=== PATIENT | female | born 1970 | race Caucasian/White ===

== ENCOUNTER 2016-04-22 11:11 | Emergency (ER) | payer SELFPAY ==
[2016-04-22] MEDS ORDERED: PREDNISONE 20 MG TAB PO ONE (12:29)
[2016-04-22] MEDS ORDERED: AMOXICILLIN 500 MG CAP PO ONE (12:29)
--- NOTE | 2016-04-22 12:29 | EDPRACDOC ---
- General Information Stated Complaint: CONGESTION & COUGH Time Seen by Provider: 04/22/16 12:16 Home Medications: Home Medications Esomeprazole Magnesium [Nexium 24Hr] 20 mg PO DAILY PRN 02/10/16 Albuterol Sulfate [Proventil Hfa] 1 - 2 puff INH Q4H PRN #1 each 04/22/16 Amoxicillin Trihydrate [Amoxicillin] 500 mg PO TID #30 tab 04/22/16 Prednisone [Deltasone, Orasone] 2 tabs PO DAILY #20 tab 04/22/16 Promethazine Dextromethorphan [Phenergan DM] 5 ml PO Q4H PRN #120 ml 04/22/16 Allergies/Adverse Reactions: Allergies Allergy/AdvReac Type Severity Reaction Status Date / Time codeine phosphate Allergy Hives* Verified 03/03/16 07:08 [From Tylenol-Codeine #3] - History of Present Illness Symptoms Started: weeks HPI: PT PRESENTS TODAY WITH COUGH/CONGESTION X WEEKS. RECENTLY BEGAN TO FEEL MORE FATIGUED WITH SUBJECTIVE FEVER. PT HEAVY SMOKER WITH COPD. DENIES CP, ABD PAIN , N/V/D. NO APPARENT DISTRESS. Symptoms: Reports: Cough, Fever, Nasal Symptoms Recent Medications: Reports: None Relevant History Of: Reports: COPD Shortness of Breath: Mild Cough Frequency: Persistent Cough Description: Reports: Congested Rhinorrhea: Reports: None Ear Symptoms: Reports: None Associated Signs and Symptoms: Reports: Cough, Fever, Nasal Symptoms, Other ( FATIGUE) ED Past Medical History - History Reviewed Yes Nurses notes reviewed and agree except as marked - Patient Medical History Respiratory History: Reports: COPD GI/ History: Reports: Gastroesophageal Reflux Psychological History: Denies: Depression Additional Past Medical History: Chronic Back Pain Surgical History: Reports: Cholecystectomy, Other (TUBAL LIGATION) - Social Medical History Smoking Status: Heavy tobacco smoker (5 or more cigarettes/day or daily pipe/ cigar) EDM Review of Systems - Review of Systems ROS Negative Except as Marked: Yes All systems reviewed and were negative except as marked Constitutional: Fever, Fatigue Eyes: No Symptoms Reported Ears: No Symptoms Reported Throat: No Symptoms Reported Nose: Congestion Respiratory: Cough, Shortness of Breath, Wheezing Cardiovascular: No Symptoms Reported Gastrointestinal: No Symptoms Reported Neurological: No Symptoms Reported Musculoskeletal: No Symptoms Reported Integumentary: No Symptoms Reported - Physical Exam Constitutional: Alert (Awake), No apparent distress Oriented to: Time, Person, Place Last recorded Vital Signs: Oxygen Pulse Oxygen Saturation O2 Device Oxygen Flow Rate Fraction of Inspired Oxygen ( FIO2) - HEENT Head: Normal Eye Exam: Normal Oropharynx: Normal Tympanic Membrane: Normal ENT EAC: Normal Nose: Congestion Neck: Normal, Denies Pain, Midline - Respiratory/Cardiovascular Respiratory: Rhonchi (MILD, BILATERAL LOWER LOBES), Wheezes (BILATERAL UPPER LOBES) Cardiovascular: Normal - GI Palpation: Normal Tenderness: Non tender - Musculoskeletal Back: Normal Extremities: Normal - Integumentary Skin: Normal Lymphatics: Normal - Neurologic Cerebellar: Normal Mood Description: Normal Thought: Coherent Perception: Normal Decision Time to Discharge: 12:26 - Departure Disposition: Home Condition: Stable Final Diagnosis: Bronchopneumonia Instructions: Community Acquired Pneumonia (ED) Education/Counseling Given To: Patient Education/Counseling Given Regarding: Diagnosis, Treatment, Follow Up Referrals: None,No Provider [Primary Care Provider] - One Week Prescriptions: New Albuterol Sulfate [Proventil Hfa] 1 - 2 puff INH Q4H PRN #1 each PRN Reason: Shortness Of Breath Amoxicillin Trihydrate [Amoxicillin] 500 mg PO TID #30 tab Prednisone [Deltasone, Orasone] 2 tabs PO DAILY #20 tab Promethazine Dextromethorphan [Phenergan DM] 5 ml PO Q4H PRN #120 ml PRN Reason: Cough No Action Esomeprazole Magnesium [Nexium 24Hr] 20 mg PO DAILY PRN PRN Reason: Acid Reflux Additional Instructions: STOP SMOKING!!! REST AND PLENTY OF FLUIDS. FOLLOW UP WITH PCP IN 2-3 DAYS IF NEEDED OR RETURN TO ER FOR ANY WORSE/CONCERNING SYMPTOMS.
[2016-04-22 12:30] VITALS: BP 162/65; PULSE 76; TEMP 98; BMI 29.1
== END 2016-04-22 12:36 | disposition home or self-care (01) ==
LOC: ED 11:11 → EDMC 12:36
DX: J18.0 Bronchopneumonia, unspecified organism (principal)
CPT/HCPCS: 99282; J3490

== ENCOUNTER 2016-04-27 16:17 | Inpatient (IN) | payer SELFPAY ==
[2016-04-27 16:30] VITALS: BMI 29.0
[2016-04-27] MEDS ORDERED: Albuterol/Ipratropium Neb 3 ML NEB NEB ONE (18:20)
[2016-04-27] MEDS ORDERED: METHYLPREDNISOLONE 125 MG/2 ML VIAL IV ONE (18:20)
[2016-04-27] MEDS ORDERED: NS 1,000 ML IV ONE (18:21)
[2016-04-27] MEDS ORDERED: HYDROmorphone 1 MG INJECTION IV ONE (18:21)
[2016-04-27] MEDS ORDERED: ONDANSETRON HCL 4 MG/2 ML VIAL IV ONE (18:21)
--- NOTE | 2016-04-27 18:28 | DIRPT ---
CLINICAL DATA: Cough, congestion and shortness of breath for 1 week. EXAM: CHEST 2 VIEW COMPARISON: 02/10/2016 FINDINGS: The cardiomediastinal contours are normal. The lungs are clear. Pulmonary vasculature is normal. No consolidation, pleural effusion, or pneumothorax. No acute osseous abnormalities are seen. IMPRESSION: No acute pulmonary process. Electronically Signed By: Ashley Coughlin M.D. On: 04/27/2016 18:25
[2016-04-27 18:38] LABS: ABG Draw Site Right Radial; ALLEN'S TEST PASS; BEb 1.1 (+/- 2); TCO2 26.2 MMOL/L (23-27)
--- NOTE | 2016-04-27 18:53 | EDPRACDOC ---
- General Information Information Source: Patient - History of Present Illness Onset: WEEKS HPI: PT PRESENTS TODAY WITH INCREASING COUGH/SHOB, FATIGUE AND FEVER. PT HAS BEEN COUGHING FOR WEEKS. I SAW PT YESTERDAY AND GAVE ANTIBIOTICS, STEROIDS AND INHALER. PT COULD NOT AFFORD INHALER, BUT DID START THE OTHERS. PT APPEARS ILL, BUT NON-TOXIC. Shortness of Breath: Moderate Relevant History: Reports: COPD Cough: Reports: Productive, Green Rhinorrhea: Reports: None Ear Symptoms: Reports: Earache SOB Worsens with: Reports: Exertion, Coughing SOB Improves with: Reports: Rest Recently treated infections:: Reports: Pneumonia Associated Signs and symptoms: Reports: Cough, Earache, Fever, Nasal Symptoms, Myalgia <Suni Mayen - Last Filed: 04/27/16 19:22> <Benji Cleary - Last Filed: 04/27/16 20:17> - General Information Chief Complaint: Dyspnea/Resp distress Stated Complaint: SHOB/COUGH/ELODIA Time Seen by Provider: 04/27/16 18:08 Home Medications: Home Medications Esomeprazole Magnesium [Nexium 24Hr] 20 mg PO DAILY PRN 02/10/16 Albuterol Sulfate [Proventil Hfa] 1 - 2 puff INH Q4H PRN #1 each 04/22/16 Amoxicillin Trihydrate [Amoxicillin] 500 mg PO TID #30 tab 04/22/16 Prednisone [Deltasone, Orasone] 2 tabs PO DAILY #20 tab 04/22/16 Promethazine Dextromethorphan [Phenergan DM] 5 ml PO Q4H PRN #120 ml 04/22/16 Allergies/Adverse Reactions: Allergies Allergy/AdvReac Type Severity Reaction Status Date / Time codeine phosphate Allergy Hives* Verified 04/27/16 16:30 [From Tylenol-Codeine #3] ED Past Medical History - History Reviewed Yes Nurses notes reviewed and agree except as marked - Patient Medical History Respiratory History: Reports: Asthma, COPD GI/ History: Reports: Gastroesophageal Reflux Psychological History: Denies: Depression Additional Past Medical History: Chronic Back Pain Surgical History: Reports: Cholecystectomy, Other (TUBAL LIGATION). Denies: Hysterectomy - Social Medical History Smoking Status: Heavy tobacco smoker (5 or more cigarettes/day or daily pipe/ cigar) <Suni Mayen - Last Filed: 04/27/16 19:22> EDM Review of Systems - Review of Systems ROS Negative Except as Marked: Yes All systems reviewed and were negative except as marked Constitutional: Fever, Fatigue, Weakness Eyes: No Symptoms Reported Ears: Pain Throat: No Symptoms Reported Nose: Congestion Respiratory: Cough, Shortness of Breath Cardiovascular: No Symptoms Reported Gastrointestinal: Nausea Genitourinary: No Symptoms Reported Neurological: No Symptoms Reported Musculoskeletal: Chestwall Integumentary: No Symptoms Reported <Suni Mayen Fareed - Last Filed: 04/27/16 19:22> - Physical Exam Constitutional: Alert, Distress Oriented to: Time, Person, Place Last recorded Vital Signs: Last Vital Signs Temp 99.7 F 04/27/16 16:28 Pulse 100 04/27/16 18:45 Resp 22 04/27/16 18:45 BP 122/65 04/27/16 18:45 Pulse Ox 94 04/27/16 18:45 Oxygen Pulse Oxygen Saturation 94 O2 Device Nasal Cannula Oxygen Flow Rate 2 Fraction of Inspired Oxygen ( FIO2) - HEENT Head: Normal Eye Exam: Normal Oropharynx: Normal Tympanic Membrane: Normal ENT EAC: Normal Nose: Congestion Neck: Normal, Denies Pain, Midline - Respiratory/Cardiovascular Respiratory: Diminished, Rhonchi, Wheezes Cardiovascular: Tachycardia - GI Palpation: Normal Tenderness: Non tender - Musculoskeletal Back: Normal Extremities: Normal - Integumentary Skin: Warm Lymphatics: Normal - Neurologic Cerebellar: Normal Mood Description: Normal Thought: Coherent Perception: Normal <Suni Mayen - Last Filed: 04/27/16 19:22> - Physical Exam Last recorded Vital Signs: Last Vital Signs Temp 99.7 F 04/27/16 16:28 Pulse 101 04/27/16 19:32 Resp 18 04/27/16 19:32 BP 127/67 04/27/16 19:32 Pulse Ox 96 04/27/16 19:32 Oxygen Pulse Oxygen Saturation 96 O2 Device Room Air Oxygen Flow Rate 2 Fraction of Inspired Oxygen ( FIO2) <Benji Cleary - Last Filed: 04/27/16 20:17> ED SOB MDM - Results Result Diagrams: 04/27/16 15:35 04/27/16 15:35 Results: Puncture Site Right radial 04/27/16 18:32 pH 7.440 pH UNITS (7.35-7.45) 04/27/16 18:32 pCO2 37.0 mmHg (35-45) 04/27/16 18:32 pO2 58.0 mmHg (80-100) L 04/27/16 18:32 HCO3 25.1 MMOL/L (22-26) 04/27/16 18:32 Total CO2 26.2 MMOL/L (23-27) 04/27/16 18:32 Base Excess 1.1 (+/- 2) 04/27/16 18:32 FiO2 % .21 04/27/16 18:32 Specimen Drawn By Sy 04/27/16 18:32 Lab Results 04/27/16 18:32 Puncture Site Right radial pH 7.440 pCO2 37.0 pO2 58.0 L HCO3 25.1 Total CO2 26.2 Base Excess 1.1 FiO2 % .21 Specimen Drawn By Sy <FaheemuSni Fareed - Last Filed: 04/27/16 19:22> - Differential Diagnosis Differential Diagnosis: Asthma, Pnuemonia, URI - Re-evaluation Re-evaluation 1 Re-evaluation Time: 20:09 (still wheezing and tachypneic, plan admit. ) - Results Result Diagrams: 04/27/16 15:35 04/27/16 15:35 Results: WBC 5.6 xk/uL (3.8-10.8) 04/27/16 15:35 RBC 4.37 xM/uL (4.20-5.40) 04/27/16 15:35 Hgb 14.4 g/dL (12.0-16.0) 04/27/16 15:35 Hct 41.4 % (36-47) 04/27/16 15:35 MCV 95 fL (81-99) 04/27/16 15:35 MCH 32.9 pg (27-32) H 04/27/16 15:35 MCHC 34.7 g/dl (33-36) 04/27/16 15:35 RDW 13.5 % (11.5-14.5) 04/27/16 15:35 Plt Count 156 xk/uL (130-400) 04/27/16 15:35 MPV 7.5 fL (7.4-10.4) 04/27/16 15:35 Neut % (Auto) 51.1 % (45-76) 04/27/16 15:35 Lymph % (Auto) 34.0 % (17-44) 04/27/16 15:35 [place] % (Auto) 12.3 % (3-10) H 04/27/16 15:35 Eos % (Auto) 1.6 % (0-5) 04/27/16 15:35 Baso % (Auto) 1.0 % (0-2) 04/27/16 15:35 Absolute Neuts (auto) 2.86 xk/uL (1.7-8.2) 04/27/16 15:35 Absolute Lymphs (auto) 1.90 xk/uL (0.65-4.75) 04/27/16 15:35 Puncture Site Right radial 04/27/16 18:32 pH 7.440 pH UNITS (7.35-7.45) 04/27/16 18:32 pCO2 37.0 mmHg (35-45) 04/27/16 18:32 pO2 58.0 mmHg (80-100) L 04/27/16 18:32 HCO3 25.1 MMOL/L (22-26) 04/27/16 18:32 Total CO2 26.2 MMOL/L (23-27) 04/27/16 18:32 Base Excess 1.1 (+/- 2) 04/27/16 18:32 FiO2 % .21 04/27/16 18:32 Specimen Drawn By Sy 04/27/16 18:32 Sodium 134 mEq/L (137-146) L 04/27/16 15:35 Potassium 3.4 mEq/L (3.5-5.1) L 04/27/16 15:35 Chloride 99 mEq/L (98-107) 04/27/16 15:35 Carbon Dioxide 24 mMOL/L (22-33) 04/27/16 15:35 Anion Gap 14 mEq/L (8-16) 04/27/16 15:35 BUN 6 MG/DL (7-17) L 04/27/16 15:35 Creatinine 0.70 MG/DL (0.52-1.04) 04/27/16 15:35 Estimated GFR (MDRD) > 60 mL/min (>=60) 04/27/16 15:35 Glucose 84 MG/DL (70-99) 04/27/16 15:35 Calculated Osmolality 255 MOs/Kg (270-290) L 04/27/16 15:35 Calcium 8.9 MG/DL (8.4-10.2) 04/27/16 15:35 Corrected Calcium 9.0 MG/DL (8.4-10.2) 04/27/16 15:35 Total Bilirubin 0.6 MG/DL (0.2-1.3) 04/27/16 15:35 AST 30 IU/L (14-36) 04/27/16 15:35 ALT 41 IU/L (9-52) 04/27/16 15:35 Alkaline Phosphatase 94 IU/L (38-126) 04/27/16 15:35 Total Creatine Kinase 146 IU/L (30-134) H 04/27/16 15:35 Myoglobin 42.9 ng/mL (0-101) 04/27/16 15:35 Troponin I < 0.01 ng/mL (<.04) 04/27/16 15:35 Mpm-V-[id number] Pept 28 pg/mL (0-450) 04/27/16 15:35 Total Protein 6.8 G/DL (6.3-8.2) 04/27/16 15:35 Albumin 3.9 G/DL (3.5-5.0) 04/27/16 15:35 Urine Color Pale yellow 04/27/16 19:27 Urine Clarity Clear 04/27/16 19:27 Urine pH 7.0 (5.0-8.0) 04/27/16 19:27 Ur Specific [place] 1.005 (1.003-1.035) 04/27/16 19:27 Urine Protein Neg (NEG/TRACE) 04/27/16 19:27 Urine Glucose (UA) Neg (NEGATIVE) 04/27/16 19:27 Urine Ketones Neg (NEGATIVE) 04/27/16 19:27 Urine Occult Blood 2+ (NEG/TRACE) H 04/27/16 19:27 Urine Nitrite Neg (NEGATIVE) 04/27/16 19:27 Urine Bilirubin Neg (NEGATIVE) 04/27/16 19:27 Urine Urobilinogen 2 MG/DL (0-1) H 04/27/16 19:27 Ur Leukocyte Esterase Neg (NEGATIVE) 04/27/16 19:27 Ur Epithelial Cells Occ 04/27/16 19:27 Lab Results 04/27/16 04/27/16 04/27/16 19:27 18:32 15:35 WBC RBC Hgb Hct MCV MCH MCHC RDW Plt Count MPV Neut % (Auto) Lymph % (Auto) [place] % (Auto) Eos % (Auto) Baso % (Auto) Absolute Neuts (auto) Absolute Lymphs (auto) Puncture Site Right radial pH 7.440 pCO2 37.0 pO2 58.0 L HCO3 25.1 Total CO2 26.2 Base Excess 1.1 FiO2 % .21 Specimen Drawn By Sy Sodium Potassium Chloride Carbon Dioxide Anion Gap BUN Creatinine Estimated GFR (MDRD) Glucose Calculated Osmolality Calcium Corrected Calcium Total Bilirubin AST ALT Alkaline Phosphatase Total Creatine Kinase 146 H Myoglobin 42.9 Troponin I < 0.01 [id number]-Ejtqohqowsj Pept 28 Total Protein Albumin Urine Color Pale yellow Urine Clarity Clear Urine pH 7.0 Ur Specific [place] 1.005 Urine Protein Neg Urine Glucose (UA) Neg Urine Ketones Neg Urine Occult Blood 2+ H Urine Nitrite Neg Urine Bilirubin Neg Urine Urobilinogen 2 H Ur Leukocyte Esterase Neg Ur Epithelial Cells Occ 04/27/16 04/27/16 15:35 15:35 WBC 5.6 RBC 4.37 Hgb 14.4 Hct 41.4 MCV 95 MCH 32.9 H MCHC 34.7 RDW 13.5 Plt Count 156 MPV 7.5 Neut % (Auto) 51.1 Lymph % (Auto) 34.0 [place] % (Auto) 12.3 H Eos % (Auto) 1.6 Baso % (Auto) 1.0 Absolute Neuts (auto) 2.86 Absolute Lymphs (auto) 1.90 Puncture Site pH pCO2 pO2 HCO3 Total CO2 Base Excess FiO2 % Specimen Drawn By Sodium 134 L Potassium 3.4 L Chloride 99 Carbon Dioxide 24 Anion Gap 14 BUN 6 L Creatinine 0.70 Estimated GFR (MDRD) > 60 Glucose 84 Calculated Osmolality 255 L Calcium 8.9 Corrected Calcium 9.0 Total Bilirubin 0.6 AST 30 ALT 41 Alkaline Phosphatase 94 Total Creatine Kinase Myoglobin Troponin I Mer-Y-Uecwvrgffoi Pept Total Protein 6.8 Albumin 3.9 Urine Color Urine Clarity Urine pH Ur Specific [place] Urine Protein Urine Glucose (UA) Urine Ketones Urine Occult Blood Urine Nitrite Urine Bilirubin Urine Urobilinogen Ur Leukocyte Esterase Ur Epithelial Cells <Benji Cleary - Last Filed: 04/27/16 20:17> - Departure Disposition: Admit IP To This Hospital Decision to Admit Time: 19:22 Decision to admit date: 04/27/16 Decision to admit: from ED <Suni Mayen - Last Filed: 04/27/16 19:22> - Departure Yes I personally saw and evaluated the patient. - Physician Consulted Hospitalist Time Called: 20:17 (DR Munoz to admit) <Benji Cleary - Last Filed: 04/27/16 20:17> - Departure Condition: Fair Final Diagnosis: Pneumonia, Acute exacerbation of chronic obstructive airways disease, Hypoxia Referrals: None,No Provider [Primary Care Provider] - One Week Prescriptions: No Action Esomeprazole Magnesium [Nexium 24Hr] 20 mg PO DAILY PRN PRN Reason: Acid Reflux Albuterol Sulfate [Proventil Hfa] 1 - 2 puff INH Q4H PRN #1 each PRN Reason: Shortness Of Breath Amoxicillin Trihydrate [Amoxicillin] 500 mg PO TID #30 tab Prednisone [Deltasone, Orasone] 2 tabs PO DAILY #20 tab Promethazine Dextromethorphan [Phenergan DM] 5 ml PO Q4H PRN #120 ml PRN Reason: Cough
[2016-04-27 18:55] LABS: AUTOMATED EOSINOPHIL 1.6 % (0-5); AUTOMATED MONOCYTE 12.3 % (3-10); AUTOMATED NEUTROPHIL 51.1 % (45-76); MPV 7.5 fL (7.4-10.4)
[2016-04-27 19:11] LABS: BLOOD UREA NITROGEN 6 MG/DL (7-17); CALCIUM 8.9 MG/DL (8.4-10.2); CALCULATED OSMOLALITY 255 MOs/Kg (270-290); CHLORIDE 99 mEq/L (98-107); GLUCOSE 84 MG/DL (70-99); SODIUM LEVEL 134 mEq/L (137-146); TOTAL PROTEIN 6.8 G/DL (6.3-8.2)
[2016-04-27 19:41] LABS: NITRITE/URINE NEG (NEGATIVE); URINE OCCULT BLOOD 2+ (NEG/TRACE)
[2016-04-27 19:42] LABS: CPK (TOTAL ONLY) 146 IU/L (30-134)
[2016-04-27 19:46] LABS: LEUKOCYTES/URINE NEG (NEGATIVE)
[2016-04-27] MEDS ORDERED: ALBUTEROL 0.083% 3 ML NEB NEB ONE ×2 (20:04)
[2016-04-27] MEDS ORDERED: LEVOFLOXACIN 500 MG TAB PO ONE (20:09)
--- NOTE | 2016-04-27 20:53 | HISTPHYS ---
- Chief Complaint shortness of breath - History of Present Illness PRIMARY CARE PROVIDER: None HPI: The patient is a 45 yo woman with COPD and Ady-Danlos syndrome who presents with worsening shortness of breath and bilateral chest pain from coughing. Had bilateral ankle fractures and has not been very mobile x several weeks; just got her casts off. She was in the emergency department 5 days ago, was evaluated , treated, and sent home with prescriptions. She states she did not fill most of the prescriptions because she could not afford it because she does not have insurance. She reports severe fatigue from coughing so much. Onset: Started 1-2 weeks ago, but worse over last 2 days. Duration: intermittent. Location: Chest pain is lower chest laterally on both sides. Radiation: none. Character: 10/10 at times, when coughing. Sharp. Alleviated by: Nothing. Exacerbated by: Coughing. Associated Symptoms: Coughing productive of green and white sputum. Wheezing. Chest wall pain with coughing. No palpitations. Swollen glands. Fever at home up to 103. Shaking chills. No diaphoresis. Throat is sore and feels raw. Headache bilaterally. No focal weakness. Pain in ankles and legs, back pain. Treatments: none at home. She could not afford to fill the prescription for her inhalers so she has no COPD treatment at home. PMH: Had a pulmonary embolism approx 2005 in [place]. No other history of PE or DVT. COPD, does not use inhalers at home. HTN. Bilateral ankle fractures 02/2016. Ady-Danlos syndrome. - Medical History Respiratory History: Reports: COPD (No O2 at home.), Pulmonary Embolism (PE 2005 in [place]. No other history of PE or DVT.) GI/ History: Reports: Gastroesophageal Reflux (and urinary stress incontinence ) Musculoskeletal History: Reports: Arthritis (and ADY-DANLOS SYNDROME) Psychological History: Denies: Depression - Surgical History Reports: Cholecystectomy, Other (TUBAL LIGATION. Bilateral ankle fx repair 2015.). Denies: Hysterectomy - Medictions/Allergies Allergies codeine phosphate [From Tylenol-Codeine #3] Allergy (Verified 04/27/16 16:30) Hives* Current Medication List: Reviewed Home Medications Esomeprazole Magnesium [Nexium 24Hr] 20 mg PO DAILY PRN 02/10/16 Albuterol Sulfate [Proventil Hfa] 1 - 2 puff INH Q4H PRN #1 each 04/22/16 Amoxicillin Trihydrate [Amoxicillin] 500 mg PO TID #30 tab 04/22/16 Prednisone [Deltasone, Orasone] 2 tabs PO DAILY #20 tab 04/22/16 Promethazine Dextromethorphan [Phenergan DM] 5 ml PO Q4H PRN #120 ml 04/22/16 - Family History Reports: Hypertension (Mother, Father), Diabetes (Siblings), Cancer (Sister) - Social History Smoking Status: Heavy tobacco smoker (5 or more cigarettes/day or daily pipe/ cigar) (Smokes 1.5 ppd.) Social History: Denies: Alcohol Use, Substance Use Disorder - Review of Systems GENERAL: Fever, chills. No diaphoresis. Positive for fatigue/malaise. HEENT: No nasal discharge or bleeding. Has throat pain but no throat swelling. No eye pain or eye redness. RESPIRATORY: Cough, wheezing, and shortness of breath. CARDIOVASCULAR: Chest wall pain with coughing. No palpitations. GI: Nausea. No abdominal pain, vomiting, diarrhea, constipation, or bloody stool. NEUROLOGICAL: Headache bilaterally. No focal weakness. INTEGUMENT: no rashes, itching, or lesions. LYMPHATIC SYSTEM: Swollen glands in her neck; otherwise no new lymph node swelling or pain. MUSCULOSKELETAL: Pain in ankles and legs, back pain (has had for awhile). No joint swelling. GENITOURINARY: No dysuria or hematuria. ENDOCRINE: No polyuria or polydipsia. HEME: No chronic anemia, bleeding, or easy bruising. - Physical Exam Vital Signs: Initial Vitals Temperature 99.7 F 04/27/16 16:28 Pulse Rate 114 04/27/16 16:28 Respiratory Rate 20 04/27/16 16:28 Blood Pressure 111/75 04/27/16 16:28 Pulse Oxygen Saturation 95 04/27/16 16:28 Vital Signs - 24 hr 04/27/16 04/27/16 04/27/16 16:28 18:05 18:45 Temperature 99.7 F Pulse Rate 114 105 100 Respiratory 20 24 22 Rate Blood Pressure 111/75 109/72 122/65 Pulse Oxygen 95 93 94 Saturation 04/27/16 04/27/16 04/27/16 19:20 19:32 19:43 Temperature 98.8 F Pulse Rate 101 99 Respiratory 18 20 Rate Blood Pressure 127/67 Pulse Oxygen 96 96 Saturation 04/27/16 04/27/16 04/27/16 20:02 20:32 21:02 Temperature 98.4 F Pulse Rate 96 101 106 Respiratory 20 20 18 Rate Blood Pressure 90/51 L 97/66 L 95/61 L Pulse Oxygen 93 94 93 Saturation 04/27/16 04/27/16 21:25 21:41 Temperature Pulse Rate 99 100 Respiratory 20 20 Rate Blood Pressure 100/64 103/57 L Pulse Oxygen 94 97 Saturation Weight: 70.4 kg Height: 5 feet 2 inches BMI: 28.4 - Other Exam Other Exam Findings: GENERAL: Ill-appearing, well nourished, in acute distress. HEENT: Normocephalic, atraumatic; pupils equal and round. Nares patent, without discharge or bleeding. No oropharyngeal lesions or erythema. Mucous membranes are dry. NECK: is supple, trachea midline. Anterior neck is protuberant. RESPIRATORY: Clear to auscultation bilaterally. Chest wall movements are symmetric. Tachypnea. No use of accessory muscles to breathe. Bilateral coarse breath sounds and wheezing. No rales. CARDIOVASCULAR: Normal S1, S2. No murmurs, rubs, or gallops. PMI non-displaced. Carotids: no carotid bruits. Mild tachycardia. DP pulses 2+ bilaterally. GI: soft, nontender, non-distended, normal active bowel sounds. No hepatosplenomegaly. INTEGUMENT: Clean, dry, and intact. No rashes. No lesions. MUSCULOSKELETAL: Moving all extremities. No cyanosis. No clubbing. Edema: none bilaterally. NEUROLOGICAL: Cranial nerves 2-12 grossly intact. Motor 4/5 throughout. Reflexes : 2+ bilaterally. Babinski: toes downgoing bilaterally. Intact Finger to nose. Sensory grossly intact to light touch. Intact rapid alternating movements bilaterally. No pronator drift. PSYCHIATRIC: Fully oriented. Normal and appropriate affect. LYMPHATIC: No cervical lymphadenopathy. No supraclavicular lymphadenopathy. - Lab Results Laboratory Results - last 24 hr 04/27/16 04/27/16 04/27/16 15:35 15:35 15:35 WBC 5.6 RBC 4.37 Hgb 14.4 Hct 41.4 MCV 95 MCH 32.9 H MCHC 34.7 RDW 13.5 Plt Count 156 MPV 7.5 Neut % (Auto) 51.1 Lymph % (Auto) 34.0 Cavalier % (Auto) 12.3 H Eos % (Auto) 1.6 Baso % (Auto) 1.0 Absolute Neuts (auto) 2.86 Absolute Lymphs (auto) 1.90 Puncture Site pH pCO2 pO2 HCO3 Total CO2 Base Excess FiO2 % Specimen Drawn By Sodium 134 L Potassium 3.4 L Chloride 99 Carbon Dioxide 24 Anion Gap 14 BUN 6 L Creatinine 0.70 Estimated GFR (MDRD) > 60 Glucose 84 Calculated Osmolality 255 L Calcium 8.9 Corrected Calcium 9.0 Total Bilirubin 0.6 AST 30 ALT 41 Alkaline Phosphatase 94 Total Creatine Kinase 146 H Myoglobin 42.9 Troponin I < 0.01 Bau-L-Gtksayaxvzf Pept 28 Total Protein 6.8 Albumin 3.9 Urine Color Urine Clarity Urine pH Ur Specific [place] Urine Protein Urine Glucose (UA) Urine Ketones Urine Occult Blood Urine Nitrite Urine Bilirubin Urine Urobilinogen Ur Leukocyte Esterase Ur Epithelial Cells 04/27/16 04/27/16 18:32 19:27 WBC RBC Hgb Hct MCV MCH MCHC RDW Plt Count MPV Neut % (Auto) Lymph % (Auto) [place] % (Auto) Eos % (Auto) Baso % (Auto) Absolute Neuts (auto) Absolute Lymphs (auto) Puncture Site Right radial pH 7.440 pCO2 37.0 pO2 58.0 L HCO3 25.1 Total CO2 26.2 Base Excess 1.1 FiO2 % .21 Specimen Drawn By Sy Sodium Potassium Chloride Carbon Dioxide Anion Gap BUN Creatinine Estimated GFR (MDRD) Glucose Calculated Osmolality Calcium Corrected Calcium Total Bilirubin AST ALT Alkaline Phosphatase Total Creatine Kinase Myoglobin Troponin I Rjk-E-Iqrwmlwidmg Pept Total Protein Albumin Urine Color Pale yellow Urine Clarity Clear Urine pH 7.0 Ur Specific [place] 1.005 Urine Protein Neg Urine Glucose (UA) Neg Urine Ketones Neg Urine Occult Blood 2+ H Urine Nitrite Neg Urine Bilirubin Neg Urine Urobilinogen 2 H Ur Leukocyte Esterase Neg Ur Epithelial Cells Occ - Diagnostic Findings Chest x-ray, viewed personally: EXAM: CHEST 2 VIEW COMPARISON: 02/10/2016 FINDINGS: The cardiomediastinal contours are normal. The lungs are clear. Pulmonary vasculature is normal. No consolidation, pleural effusion, or pneumothorax. No acute osseous abnormalities are seen. IMPRESSION: No acute pulmonary process. - Assessment (1) Acute exacerbation of chronic obstructive airways disease J44.1 - CHRONIC OBSTRUCTIVE PULMONARY DISEASE W (ACUTE) EXACERBATION Acute Present on Admission: Yes COPD exacerbation, severe. Failed outpatient managemnet. Plan: Nebs of Duoneb q 6 hours scheduled and albuterol q 2 hours prn. Sputum culture ordered. IV ceftriaxone and IV azithromycin. IV methylprednisolone. Continuous oxygen support. Keep sats below 95% due to COPD. (2) Hypoxia R09.02 - HYPOXEMIA Acute Present on Admission: Yes Patient has dyspnea and is not improving. Patient's PO2 is low. Plan: Place patient on oxygen by Venti Mask 40% and increase as needed. Monitor oxygen saturation levels and keep O2 sats greater than 92%. Will check a D-Dimer and if positive will order CTA Chest. (3) Hypokalemia E87.6 - HYPOKALEMIA Acute Present on Admission: Yes Replace potassium with KCl. Check magnesium level and replace as needed. (4) Ady-Danlos disease Q79.6 - ADY-DANLOS SYNDROME Acute Present on Admission: Yes Chronic issue but will likely affect her acute course. She will be more easily fatigued, and is at higher risk of respiratory distress. Most patients with Ady-Danlos develop significant musculoskeletal pain, which is often chronic. Patient should not picker and sorter load and unload more than 5 lb at a time. She may walk while she is here, but should not over exert herself, as this would be counterproductive for an Ady Danlos patient. She should consider activities that are nonweightbearing if possible. Abdirizak-chi has also been shown to have some benefit. She should be enouraged to make an apointment with an qa automation developer for screening due to her Ady Danlos and risk of retinal fragility, glaucoma, and other possible sequelae. (5) Tobacco abuse Z72.0 - TOBACCO USE Acute Present on Admission: Yes Counseled to quit. (6) Hematuria, microscopic R31.29 - OTHER MICROSCOPIC HEMATURIA Acute Present on Admission: Yes Patient reports no history of hematuria. Had 2+ blood on UA. Plan: Patient informed of hematuria result. Recommended she follow up with a primary care doctor for recheck. Case Care Discussed with: Patient, Nursing Staff Total Time: 60 min
[2016-04-27] MEDS ORDERED: ESOMEPRAZOLE MAGNESIUM 20 MG PO PRN (22:17)
[2016-04-27] MEDS ORDERED: SENNA CONCENTRATE TAB PO PRN (22:19)
[2016-04-27] MEDS ORDERED: GUAIFEN 100 MG-DEXTROMETH 10 MG PER 5 ML PO PRN (22:19)
[2016-04-27] MEDS ORDERED: SIMETHICONE 80 MG TAB PO PRN (22:19)
[2016-04-27] MEDS ORDERED: ONDANSETRON HCL 4 MG/2 ML VIAL IV PRN (22:19)
[2016-04-27] MEDS ORDERED: BENZONATATE 100 MG PERLES PO PRN (22:19)
[2016-04-27] MEDS ORDERED: BISACODYL 5 MG TAB PO PRN (22:19)
[2016-04-27] MEDS ORDERED: TEMAZEPAM 15 MG CAP PO PRN (22:19)
[2016-04-27] MEDS ORDERED: PROMETHAZINE 25 MG/ML VIAL IV PRN (22:19)
[2016-04-27] MEDS ORDERED: PANTOPRAZOLE 40 MG TAB PO PRN (22:27)
[2016-04-27] MEDS ORDERED: Vaccine Screening Complete SCH (23:00)
[2016-04-27] MEDS ORDERED: PANTOPRAZOLE 40 MG TAB PO ONE (23:02)
[2016-04-27] MEDS ORDERED: ALBUTEROL 0.083% 3 ML NEB NEB PRN (23:04)
[2016-04-27] MEDS ORDERED: TRAMADOL HCL 50 MG TAB PO PRN (23:04)
[2016-04-27] MEDS ORDERED: Magnesium Sulfate 1 gm/D5W 1 GM/100 ML RTU IV ONE (23:18)
[2016-04-27] MEDS: Aluminum;Magnesium;Simethicone 30 ML UDC PO PRN (23:38)
[2016-04-27] MEDS ORDERED: NS 500 ML IV ONE (23:45)
[2016-04-27] MEDS: POTASSIUM CHLORIDE 20 MEQ TAB PO SCH (23:47)
[2016-04-27] MEDS: METHYLPREDNISOLONE 125 MG/2 ML VIAL IV SCH (23:48)
[2016-04-28] MEDS ORDERED: Pharmacy Review for Metformin - IV Contrast Given SCH (01:00)
[2016-04-28] MEDS: Albuterol/Ipratropium Neb 3 ML NEB NEB SCH ×4 (01:19→19:18)
[2016-04-28] MEDS: OXYCODONE HCL 5 MG TABLET PO PRN ×5 (01:22→21:32)
[2016-04-28] MEDS: POTASSIUM CHLORIDE 20 MEQ TAB PO SCH ×2 (01:23→04:45)
--- NOTE | 2016-04-28 01:48 | DIRPT ---
CLINICAL DATA: Hypoxia and shortness of breath. Progressive cough. Elevated D-dimer. EXAM: CT ANGIOGRAPHY CHEST WITH CONTRAST TECHNIQUE: Multidetector CT imaging of the chest was performed using the standard protocol during bolus administration of intravenous contrast. Multiplanar CT image reconstructions and MIPs were obtained to evaluate the vascular anatomy. CONTRAST: 80 mL Isovue 370 IV COMPARISON: Radiographs 5 hours prior. FINDINGS: There are no filling defects within the pulmonary arteries to suggest pulmonary embolus. Heart normal in size. Normal caliber thoracic aorta without aneurysm or dissection. Conventional branching pattern from the aortic arch. No mediastinal or hilar adenopathy. No pericardial effusion. Breathing motion artifact partial limits evaluation of lung parenchyma. Scattered dependent atelectasis in the lower lobes. No consolidation, findings of pulmonary edema or pulmonary mass. Evaluation of the upper abdomen demonstrates no acute abnormality. Stomach distended with ingested contents. Probable hepatic steatosis. There are no acute or suspicious osseous abnormalities. Review of the MIP images confirms the above findings. IMPRESSION: No pulmonary embolus. Mild dependent atelectasis at the lung bases, otherwise no acute intrathoracic process. Electronically Signed By: Ashley Coughlin M.D. On: 04/28/2016 01:45
[2016-04-28] MEDS: ENOXAPARIN 40 MG/0.4 ML PFS SQ SCH ×2 (02:09→21:24)
[2016-04-28] MEDS: METHYLPREDNISOLONE 125 MG/2 ML VIAL IV SCH ×3 (04:44→17:28)
[2016-04-28] MEDS: Aluminum;Magnesium;Simethicone 30 ML UDC PO PRN ×3 (06:28→21:35)
[2016-04-28] MEDS: CEFTRIAXONE 1 GM in D5W 100 ML IV SCH (07:06)
[2016-04-28 07:36] LABS: MPV 7.2 fL (7.4-10.4)
[2016-04-28] MEDS ORDERED: FLU VACCINE (Afluria) 0.5 ML DOSE IM ONE (08:00)
[2016-04-28] MEDS ORDERED: PNEUMOCOCCAL 0.5 ML VIAL IM ONE (08:00)
[2016-04-28] MEDS: AZITHROMYCIN 500 MG in D5W 250 ML IV SCH (08:36)
[2016-04-28 08:58] LABS: BLOOD UREA NITROGEN 12 MG/DL (7-17); CALCIUM 9.1 MG/DL (8.4-10.2); CALCULATED OSMOLALITY 272 MOs/Kg (270-290); CHLORIDE 103 mEq/L (98-107); GLUCOSE 204 mg/dL (70-99); SODIUM LEVEL 138 mEq/L (137-146)
[2016-04-28 10:45] LABS: hTSH 0.23 uIU/mL (0.5-4.67)
--- NOTE | 2016-04-28 13:26 | GENMEDPROG ---
Chief Complaint: Complains of nervousness wanting Xanax and desiring to quit smoking tolerated Wellbutrin well in the past as well as rib requesting a nicotine patch and a proton pump inhibitor for her indigestion but states the pain in her chest is different than her indigestion such that food is sticking in her esophagus. Notices bright green phlegm which she coughs up material. States that her pain in her chest is very bothersome. Notes Reviewed: Yes: Events from last night noted and discussed with Clinical Staff Current Medication List: Reviewed Currently: Reports: Cough, Wheezing, ORNELAS, SOB DVT Prophylaxis: Yes - Physical Examination Vital Signs and I&O: Last Vital Signs Temp 97.8 F 04/28/16 09:36 Pulse 94 04/28/16 09:36 Resp 18 04/28/16 09:36 BP 132/71 04/28/16 09:36 Pulse Ox 99 04/28/16 09:36 Oxygen Pulse Oxygen Saturation 99 O2 Device Venturi Mask Oxygen Flow Rate 8 Fraction of Inspired Oxygen ( 40 FIO2) Intake & Output 04/25/16 04/26/16 04/27/16 04/28/16 23:59 23:59 23:59 23:59 Intake Total 1000 848 Output Total 3750 Balance 1000 -2902 Patient's weight 70.392 kg 70.562 kg General: Alert, Oriented x3, Mild distress, Well nourished HEENT: Normal (Normocephalic, atraumatic;EOMI.Sclera white, Nares patent, without discharge or bleeding. No oropharyngeal lesions or erythema. Mucous membranes are dry.) Neck: Non-tender, Full range of motion, Normal Trachea alignment, Normal inspection (No cervical lymphadenopathy. No supraclavicular lymphadenopathy.), No Masses palpable, Supple Lymphatics: Normal. negative: Adenopathy, Inguinal Erythema Respiratory: Diminished, Rhonchi, Wheezes. negative: Rales Cardiovascular: Regular rate and rhythm (No bradycardia or tachycardia), Normal S1, No Gallops,Rubs/Murmurs, Normal S2, Good Pedal Pulses (DP pulses 2+ bilaterally) GI: Normal bowel sounds (normal active sounds), Soft (non-distended), Non tender , No hepatospenomegaly, No masses Extremities/Musculoskeletal: Normal pulses (DP pulses 2+ bilaterally). negative : Swelling, Edema, Clubbing, Cyanosis Skin: Warm,Dry and Intact, No rashes, No significant lesion Neurological: Strength at 5/5 X4 ext (Motor 5/5 throughout.), Normal tone, Cranial nerves 3-12 NL ( 2-12 grossly intact.) Psych/Mental Status: Appropriate, Normal Affect Lab/DI/Studies Reviewed: 04/28/16 07:01 04/28/16 07:01 Laboratory Results - last 24 hr 04/27/16 04/27/16 04/27/16 15:35 15:35 15:35 WBC 5.6 RBC 4.37 Hgb 14.4 Hct 41.4 MCV 95 MCH 32.9 H MCHC 34.7 RDW 13.5 Plt Count 156 MPV 7.5 Neut % (Auto) 51.1 Lymph % (Auto) 34.0 [place] % (Auto) 12.3 H Eos % (Auto) 1.6 Baso % (Auto) 1.0 Absolute Neuts (auto) 2.86 Absolute Lymphs (auto) 1.90 D-Dimer Quant (PE/DVT) Puncture Site pH pCO2 pO2 HCO3 Total CO2 Base Excess FiO2 % Specimen Drawn By Sodium 134 L Potassium 3.4 L Chloride 99 Carbon Dioxide 24 Anion Gap 14 BUN 6 L Creatinine 0.70 Estimated GFR (MDRD) > 60 Glucose 84 Calculated Osmolality 255 L Calcium 8.9 Corrected Calcium 9.0 Magnesium Total Bilirubin 0.6 AST 30 ALT 41 Alkaline Phosphatase 94 Total Creatine Kinase 146 H Myoglobin 42.9 Troponin I < 0.01 Cyh-D-Vzsughkyilv Pept 28 Total Protein 6.8 Albumin 3.9 TSH Urine Color Urine Clarity Urine pH Ur Specific [place] Urine Protein Urine Glucose (UA) Urine Ketones Urine Occult Blood Urine Nitrite Urine Bilirubin Urine Urobilinogen Ur Leukocyte Esterase Ur Epithelial Cells 04/27/16 04/27/16 04/27/16 18:32 19:27 22:35 WBC RBC Hgb Hct MCV MCH MCHC RDW Plt Count MPV Neut % (Auto) Lymph % (Auto) [place] % (Auto) Eos % (Auto) Baso % (Auto) Absolute Neuts (auto) Absolute Lymphs (auto) D-Dimer Quant (PE/DVT) Puncture Site Right radial pH 7.440 pCO2 37.0 pO2 58.0 L HCO3 25.1 Total CO2 26.2 Base Excess 1.1 FiO2 % .21 Specimen Drawn By Sy Sodium Potassium Chloride Carbon Dioxide Anion Gap BUN Creatinine Estimated GFR (MDRD) Glucose Calculated Osmolality Calcium Corrected Calcium Magnesium 1.90 Total Bilirubin AST ALT Alkaline Phosphatase Total Creatine Kinase Myoglobin Troponin I Bad-Z-Xgshamigprs Pept Total Protein Albumin TSH Urine Color Pale yellow Urine Clarity Clear Urine pH 7.0 Ur Specific [place] 1.005 Urine Protein Neg Urine Glucose (UA) Neg Urine Ketones Neg Urine Occult Blood 2+ H Urine Nitrite Neg Urine Bilirubin Neg Urine Urobilinogen 2 H Ur Leukocyte Esterase Neg Ur Epithelial Cells Occ 04/27/16 04/28/16 04/28/16 23:35 07:01 07:01 WBC 3.9 RBC 4.26 Hgb 14.0 Hct 40.6 MCV 95 MCH 32.8 H MCHC 34.5 RDW 13.3 Plt Count 150 MPV 7.2 L Neut % (Auto) Lymph % (Auto) [place] % (Auto) Eos % (Auto) Baso % (Auto) Absolute Neuts (auto) Absolute Lymphs (auto) D-Dimer Quant (PE/DVT) 1628 H Puncture Site pH pCO2 pO2 HCO3 Total CO2 Base Excess FiO2 % Specimen Drawn By Sodium 138 Potassium 4.4 D Chloride 103 Carbon Dioxide 27 Anion Gap 12 BUN 12 Creatinine 0.60 Estimated GFR (MDRD) > 60 Glucose 204 H Calculated Osmolality 272 Calcium 9.1 Corrected Calcium Magnesium Total Bilirubin AST ALT Alkaline Phosphatase Total Creatine Kinase Myoglobin Troponin I Ioe-M-Krlgnvujbia Pept Total Protein Albumin TSH 0.23 L Urine Color Urine Clarity Urine pH Ur Specific [place] Urine Protein Urine Glucose (UA) Urine Ketones Urine Occult Blood Urine Nitrite Urine Bilirubin Urine Urobilinogen Ur Leukocyte Esterase Ur Epithelial Cells - Assessment (1) Acute exacerbation of chronic obstructive airways disease Acute J44.1 - CHRONIC OBSTRUCTIVE PULMONARY DISEASE W (ACUTE) EXACERBATION Comment/Plan: COPD exacerbation, severe. Failed outpatient managemnet. Plan: Nebs of Duoneb q 6 hours scheduled and albuterol q 2 hours prn and Solu-Medrol. Sputum culture ordered. IV ceftriaxone and IV azithromycin. Probiotics are initiated. IV methylprednisolone. Continuous oxygen support. Keep sats below 95% due to COPD. (2) Ady-Danlos disease Acute Q79.6 - ADY-DANLOS SYNDROME Comment/Plan: Chronic issue but will likely affect her acute course. She will be more easily fatigued, and is at higher risk of respiratory distress. Most patients with Ady-Danlos develop significant musculoskeletal pain, which is often chronic. Patient should not cloth picker more than 5 lb at a time. She may walk while she is here, but should not over exert herself, as this would be counterproductive for an Ady Danlos patient. She should consider activities that are nonweightbearing if possible. Abdirizak-chi has also been shown to have some benefit. She should be enouraged to make an apointment with an batch unit treater for screening due to her Ady Danlos and risk of retinal fragility, glaucoma, and other possible sequelae. (3) Hypoxia Acute R09.02 - HYPOXEMIA Comment/Plan: Patient has dyspnea and is not improving. Patient's PO2 is low. Plan: Place patient on oxygen by Venti Mask 40% and increase as needed. CT of the chest showed no evidence of pulmonary embolus. (4) Bronchopneumonia Acute J18.0 - BRONCHOPNEUMONIA, UNSPECIFIED ORGANISM Comment/Plan: Antibiotics as listed above. (5) Tobacco abuse Acute Z72.0 - TOBACCO USE Comment/Plan: Counseled to quit. Spent 10 minutes discussing smoking cessation and patient agrees to go on with uterine and the nicotine patch. Case Care Discussed with: Patient, Family (), Nursing Staff, Resource Management Education/Counseling Given To: Patient, Family Member () Education/Counseling Given Regarding: Diagnosis Total Time: 36 minutes plus additional 10 minutes discussing smoking cessation Critical Care: No Code: 77804 (12+) (407)
[2016-04-28] MEDS: ALPRAZOLAM 0.5 MG TAB PO PRN ×2 (13:51→21:32)
[2016-04-28] MEDS ORDERED: NICOTINE 21 MG PATCH TOP SCH (14:00)
[2016-04-28 14:15] LABS: FREE T3 3.55 pg/mL (2.77-5.27); FREE T4 1.23 ng/dL (0.78-2.19)
[2016-04-28] MEDS: TUSSIONEX 5 ML ORAL SYRINGE PO SCH ×2 (15:07→21:24)
[2016-04-28] MEDS: FLUCONAZOLE 100 MG TAB PO SCH (15:07)
[2016-04-28] MEDS: BuPROPion 150 MG SR TAB PO SCH (15:07)
[2016-04-28] MEDS: MAGIC MOUTHWASH 180 ML ORAL SUSP PO SCH ×2 (15:10→21:23)
[2016-04-28] MEDS ORDERED: TUSSIONEX 5 ML ORAL SYRINGE PO ONE (16:00)
[2016-04-28] MEDS: PROBIOTIC BLEND TAB PO SCH (17:27)
[2016-04-28] MEDS: KETOROLAC TROMETH 30 MG/ML VIAL IV SCH ×2 (17:27→23:59)
[2016-04-28] MEDS: PANTOPRAZOLE 40 MG TAB PO SCH (17:27)
[2016-04-29] MEDS: METHYLPREDNISOLONE 125 MG/2 ML VIAL IV SCH ×3 (00:01→11:25)
[2016-04-29 01:07] VITALS: TEMP 97.6
[2016-04-29] MEDS: Albuterol/Ipratropium Neb 3 ML NEB NEB SCH ×4 (01:17→14:05)
[2016-04-29] MEDS: KETOROLAC TROMETH 30 MG/ML VIAL IV SCH ×2 (05:38→11:25)
[2016-04-29] MEDS: CEFTRIAXONE 1 GM in D5W 100 ML IV SCH (05:39)
[2016-04-29] MEDS: PANTOPRAZOLE 40 MG TAB PO SCH (05:39)
[2016-04-29 05:43] VITALS: BP 108/56; PULSE 90
[2016-04-29] MEDS: OXYCODONE HCL 5 MG TABLET PO PRN ×2 (06:21→11:25)
[2016-04-29] MEDS: ALPRAZOLAM 0.5 MG TAB PO PRN (06:49)
[2016-04-29] MEDS: Aluminum;Magnesium;Simethicone 30 ML UDC PO PRN (08:13)
[2016-04-29] MEDS: MAGIC MOUTHWASH 180 ML ORAL SUSP PO SCH ×2 (08:13→11:24)
[2016-04-29] MEDS: TUSSIONEX 5 ML ORAL SYRINGE PO SCH (08:13)
[2016-04-29] MEDS: FLUCONAZOLE 100 MG TAB PO SCH (08:14)
[2016-04-29] MEDS: AZITHROMYCIN 500 MG in D5W 250 ML IV SCH (08:14)
[2016-04-29] MEDS: BuPROPion 150 MG SR TAB PO SCH (08:14)
[2016-04-29] MEDS: PROBIOTIC BLEND TAB PO SCH (11:24)
[2016-04-29] MEDS ORDERED: NICOTINE 21 MG PATCH TOP SCH (12:00)
--- NOTE | 2016-04-29 12:03 | PCM.DCS92 ---
- Final/Secondary Discharge Diagnosis (1) Acute exacerbation of chronic obstructive airways disease Acute J44.1 - CHRONIC OBSTRUCTIVE PULMONARY DISEASE W (ACUTE) EXACERBATION Present on Admission: Yes Comment: COPD exacerbation, severe. Failed outpatient managemnet. Plan: Nebs of Duoneb q 6 hours scheduled and albuterol q 2 hours prn and Solu-Medrol. Sputum culture ordered. IV ceftriaxone and IV azithromycin. Probiotics are initiated. IV methylprednisolone. Continuous oxygen support. Keep sats below 95% due to COPD. 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 She will be more easily fatigued, and is at higher risk of respiratory distress. Most patients with Ady-Danlos develop significant musculoskeletal pain, which is often chronic. 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 She may walk while she is here, but should not over exert herself, as this would be counterproductive for an Ady Danlos patient. She should consider activities that are nonweightbearing if possible. Abdirizak-chi has also been shown to have some benefit. She should be enouraged to make an apointment with an business job titles for screening due to her Ady Danlos and risk of retinal fragility, glaucoma, and other possible sequelae. (3) Hypoxia Acute R09.02 - HYPOXEMIA Present on Admission: Yes Comment: Patient has dyspnea and is not improving. Patient's PO2 is low. Plan: Place patient on oxygen by Venti Mask 40% and increase as needed. CT of the chest showed no evidence of pulmonary embolus. (4) Bronchopneumonia Acute J18.0 - BRONCHOPNEUMONIA, UNSPECIFIED ORGANISM Comment: Antibiotics as listed above. (5) Tobacco abuse Acute Z72.0 - TOBACCO USE Present on Admission: Yes Comment: Counseled to quit. Spent 10 minutes discussing smoking cessation and patient agrees to go on with uterine and the nicotine patch. (6) Dysphagia Chronic R13.10 - DYSPHAGIA, UNSPECIFIED Present on Admission: Yes pharyngoesophageal phase R13.14 - Dysphagia, pharyngoesophageal phase Discharge Disposition: Home Discharge Condition: Improved Cognitive Discharge Status: Unimpaired Fuctional Discharge Status: Independent Physician Follow up/Referrals: None,No Provider [Family Provider] - One Week Home Medications / New Prescriptions: New Alprazolam [Xanax] 0.5 mg PO Q6H PRN #20 tablet PRN Reason: Anxiety Or Agitation Azithromycin [Zithromax] 500 mg PO DAILY #6 BuPROPion (BID formulation) [Wellbutrin-Sr] 150 mg PO DAILY #30 tab.sr.12h Cephalexin Monohydrate [Keflex] 500 mg PO Q8H #15 cap Nicotine [Nicoderm] 21 mg TOP Q24H #30 pat Omeprazole [Prilosec] 20 mg PO BID #60 cap Oxycodone Immediate Release [Oxycodone Immediate Release (OxyIR)] 10 mg PO Q4H PRN #30 tablet PRN Reason: SEVERE PAIN Probiotic Blend [Magi Q] 1 tab PO BIDLS #20 tablet Albuterol Sulfate Nebs [Proventil, Ventolin] 3 ml INH Q6 #120 nebu Continue Albuterol Sulfate [Proventil Hfa] 1 - 2 puff INH Q4H PRN #1 each PRN Reason: Shortness Of Breath Changed Prednisone [Deltasone, Orasone] 1 tabs PO DAILY #30 tab Discontinued Esomeprazole Magnesium [Nexium 24Hr] 20 mg PO DAILY PRN PRN Reason: Acid Reflux Amoxicillin Trihydrate [Amoxicillin] 500 mg PO TID #30 tab Promethazine Dextromethorphan [Phenergan DM] 5 ml PO Q4H PRN #120 ml PRN Reason: Cough Discharge Home Medication List Albuterol Sulfate [Proventil Hfa] 1 - 2 puff INH Q4H PRN #1 each 04/22/16 [Rx Confirmed 04/29/16 Last Taken 04/29/16 07:27] Albuterol Sulfate Nebs [Proventil, Ventolin] 3 ml INH Q6 #120 nebu 04/29/16 [Rx Last Taken Unknown] Alprazolam [Xanax] 0.5 mg PO Q6H PRN #20 tablet 04/29/16 [Rx Confirmed 04/29/16 Last Taken 04/29/16 06:49] Azithromycin [Zithromax] 500 mg PO DAILY #6 04/29/16 [Rx Last Taken 04/29/16 08 :14] BuPROPion (BID formulation) [Wellbutrin-Sr] 150 mg PO DAILY #30 tab.sr.12h 04/29 [Rx Last Taken 04/29/16 08:14] Cephalexin Monohydrate [Keflex] 500 mg PO Q8H #15 cap 04/29/16 [Rx Last Taken Unknown] Nicotine [Nicoderm] 21 mg TOP Q24H #30 pat 04/29/16 [Rx Last Taken Unknown] Omeprazole [Prilosec] 20 mg PO BID #60 cap 04/29/16 [Rx Last Taken 04/29/16 05: 39] Oxycodone Immediate Release [Oxycodone Immediate Release (OxyIR)] 10 mg PO Q4H PRN #30 tablet 04/29/16 [Rx Last Taken 04/29/16 11:25] Prednisone [Deltasone, Orasone] 1 tabs PO DAILY #30 tab 04/29/16 [Rx Last Taken 04/29/16 11:25] Probiotic Blend [Magi Q] 1 tab PO BIDLS #20 tablet 04/29/16 [Rx Last Taken 05/14 11:24] 04/28/16 07:01 04/28/16 07:01 Laboratory Results - last 24 hr 04/28/16 07:01 Free T4 1.23 Free T3 3.55 O2 Device: Room Air Additional Instructions: Patient is making follow-up appointment at [address] [place] [address]. Diet at Discharge: As Tolerated, Soft, Low Residue Activity: As Tolerated Discontinue use of:: Alcohol, All Types of Tobacco - DC Summary Notes HPI/Notes: The patient is a 45 yo woman with COPD and Ady-Danlos syndrome who presents with worsening shortness of breath and bilateral chest pain from coughing. Had bilateral ankle fractures and has not been very mobile x several weeks; just got her casts off. She was in the emergency department 5 days ago, was evaluated , treated, and sent home with prescriptions. She states she did not fill most of the prescriptions because she could not afford it because she does not have insurance. She reports severe fatigue from coughing so much. Onset: Started 1-2 weeks ago, but worse over last 2 days. Duration: intermittent. Location: Chest pain is lower chest laterally on both sides. Radiation: none. Character: 10/10 at times, when coughing. Sharp. Alleviated by: Nothing. Exacerbated by: Coughing. Associated Symptoms: Coughing productive of green and white sputum. Wheezing. Chest wall pain with coughing. No palpitations. Swollen glands. Fever at home up to 103. Shaking chills. No diaphoresis. Throat is sore and feels raw. Headache bilaterally. No focal weakness. Pain in ankles and legs, back pain. Treatments: none at home. She could not afford to fill the prescription for her inhalers so she has no COPD treatment at home. PMH: Had a pulmonary embolism approx 2005 in [place]. No other history of PE or DVT. COPD, does not use inhalers at home. HTN. Bilateral ankle fractures 02/2016. Ady-Danlos syndrome. Hospital Course Note:: Discharge summary on patient named KIMMIE ROBBINS admitted to [facility] on 04/27/16 by Fritz Munoz MD. Date of discharge is 2016. She was admitted with bronchopneumonia COPD exacerbation hypoxia given IV Rocephin Zithromax with IV Solu-Medrol and nebulizer therapy improved well and ready for discharge today. We had extensive discussions about smoking cessation that both she and her should stop. Assistance was provided in getting her home medications and needs follow-up care. She will get her nebulizer from [facility] and requests that her other medications be economical. Total Time: 39 MIN Code: 96676 (>30min.) - Physical Exam Vital Signs: Last Vital Signs Temp 97.6 F 04/29/16 05:41 Pulse 90 04/29/16 05:41 Resp 19 04/29/16 05:41 BP 108/56 L 04/29/16 05:41 Pulse Ox 93 04/29/16 11:55 Oxygen Pulse Oxygen Saturation 93 O2 Device Room Air Oxygen Flow Rate 1 Fraction of Inspired Oxygen ( 40 FIO2) Constitutional: Alert, Distress Oriented to: Time, Person, Place - HEENT Head: Normal Eye: Normal Oropharynx: Normal Tympanic Membrane: Normal ENT EAC: Normal Nose: Congestion - Respiratory/Cardiovascular Respiratory: Diminished, Rhonchi, Wheezes. negative: Rales - GI Palpation: Normal Tenderness: Non tender - Musculoskeletal Back: Normal Extremities: Normal - Integumentary Lymphatics: Normal. negative: Adenopathy, Inguinal Erythema - Neurologic Cerebellar: Normal Mood Description: Normal Thought: Coherent Perception: Normal
[2016-04-29] MEDS ORDERED: ALBUTEROL 6.7 GM MDI INH SCH ×2 (14:00)
[2016-05-01] MEDS ORDERED: BuPROPion 150 MG SR TAB PO SCH (09:00)
== END 2016-04-29 14:14 | disposition home or self-care (01) | DRG 190 ==
LOC: ED 16:17 → MPS3 20:51
PROVIDERS: ADMIT Internal Medicine; ATTEND Internal Medicine
PROC: 039B3ZZ Drainage of Right Radial Artery, Percutaneous Approach (ICD-10-PCS; principal; 2016-04-27)
DX: J44.1 Chronic obstructive pulmonary disease with (acute) exacerbation (principal); J18.0 Bronchopneumonia, unspecified organism; Q79.6 Ehlers-Danlos syndromes; R13.14 Dysphagia, pharyngoesophageal phase; R09.02 Hypoxemia; J44.0 Chronic obstructive pulmonary disease with (acute) lower respiratory infection; F17.210 Nicotine dependence, cigarettes, uncomplicated; I10 Essential (primary) hypertension; Z86.711 Personal history of pulmonary embolism; K21.9 Gastro-esophageal reflux disease without esophagitis; M19.90 Unspecified osteoarthritis, unspecified site; Z79.899 Other long term (current) drug therapy; Z88.5 Allergy status to narcotic agent; E87.6 Hypokalemia; R31.29 Other microscopic hematuria; Z23 Encounter for immunization
CPT/HCPCS: 36415; 36600; 71020; 71275; 80048; 80053; 81001; 82550; 82803; 83735; 83874; 83880; 84439; 84443; 84481; 84484; 85025; 85027; 85379; 87040; 87086; 87804; 90471; 90656; 90732; 94640; 96361; 96372; 96374; 96375; 98960; 99285; 99406; A9698; G0237; J0456; J0696; J1170; J1650; J1885; J2405; J2930; J3475; J3490; J7060; J7070; J7620